=== PATIENT | male | born 1960 | race Caucasian/White ===

== ENCOUNTER 2021-03-08 09:59 | Emergency (ER) | payer SELFPAY ==
[~2021-03-08] VITALS: Ht 175.3 cm; Wt 113.4 kg
[2021-03-08] MEDS ORDERED: CASIRIVIMAB/IMDEVIMAB 10 ML in SODIUM CHLORIDE 0.9% 100 ML IV ONE ×2 (10:15→11:00)
[2021-03-08] MEDS ORDERED: SODIUM CHLORIDE 0.9% 100 ML ONE (10:21)
== END 2021-03-08 12:42 | disposition home or self-care (01) ==
LOC: ER 10:12
DX: R50.9 Fever, unspecified (principal); R51.9 Headache, unspecified; U07.1 COVID-19
CPT/HCPCS: 99283; J7050